=== PATIENT | female | born 1945 | race Caucasian/White ===

== ENCOUNTER 2019-03-12 15:59 | Emergency (ER) | payer OTHER, MEDICARE ==
[2019-03-12 16:36] LABS: ADD MAN DIFF? NO
[2019-03-12 16:38] LABS: ABNORMAL IP MESSAGE 1; BASOPHILS % 0.5 % (0.0-2.0); EOSINOPHILS % 0.2 % (0.0-7.0); HEMATOCRIT 37.6 % (37.0-47.0); HEMOGLOBIN 11.8 g/dl (12.0-16.0); LYMPHOCYTES # 0.7 10^3/ul (0.8-2.9); LYMPHOCYTES % 17.5 % (15.0-51.0); MEAN CORPUSCULAR HEMOGLOBIN 26.7 pg (29.0-33.0); MEAN CORPUSCULAR HGB CONC 31.4 g/dl (32.0-37.0); MEAN CORPUSCULAR VOLUME 85.1 fl (82.0-101.0); MONOCYTE # 0.4 10^3/ul (0.3-0.9); MONOCYTES % 10.2 % (0.0-11.0); NEUTROPHIL # 2.9 10^3/ul (1.6-7.5); NEUTROPHILS % 71.4 % (39.0-77.0); PLATELET COUNT 69 10^3/UL (140-415); RED BLOOD COUNT 4.42 10^6/ul (4.20-5.40); RED CELL DISTRIBUTION WIDTH 13.6 % (11.5-14.5)
[2019-03-12 16:39] LABS: MEAN PLATELET VOLUME 13.1 fl (7.4-10.4); POSITIVE DIFF @See below
[2019-03-12] MEDS: ACETAMINOPHEN 500 MG TAB PO (16:49)
[2019-03-12 16:55] LABS: ANION GAP 11 (5-13); BLOOD UREA NITROGEN 18 mg/dl (7-20); CALCIUM 9.3 mg/dl (8.4-10.2); CARBON DIOXIDE 26 mmol/L (21-31); CHLORIDE 103 mmol/L (97-110); CREATININE 0.76 mg/dl (0.44-1.00); POTASSIUM 4.4 mmol/L (3.5-5.1); SODIUM 140 mmol/L (135-144)
[2019-03-12 16:59] LABS: GLUCOSE 44 mg/dl (70-220)
[2019-03-12 17:01] LABS: ANISOCYTOSIS 1+ (0-0); BAND NEUTROPHILS #M 0.5 10^3/ul (0.0-0.6); BAND NEUTROPHILS % (M) 13 % (0-4); BASOPHILS % (M) 1 % (0-2); EOSINOPHILS % (M) 2 % (0-7); LYMPHOCYTES #M 0.6 10^3/ul (0.8-2.9); LYMPHOCYTES % (M) 17 % (15-51); MICROCYTOSIS 1+ (0-0); MONOCYTE #M 0.3 10^3/ul (0.3-0.9); MONOCYTES % (M) 9 % (0-11); PLATELET ESTIMATE DECREASED; POIKILOCYTOSIS 1+ (0-0); POLYCHROMASIA 3+ (0-0); SEG NEUT #M 2.3 10^3/ul (1.6-7.5); SEGMENTED NEUTROPHILS (M) % 58 % (39-77); SMUDGE%M 2 % (0-0)
[2019-03-12 17:06] LABS: TROPONIN-I 0.012 ng/ml (0.000-0.120)
[2019-03-12] MEDS: SOD CHLORIDE 0.9% 1,000 ML IV (17:29)
[2019-03-12] MEDS: DEXTROSE 50% 50 ML SYRINGE IV (17:29)
[2019-03-12 20:10] LABS: TROPONIN-I < 0.012 ng/ml (0.000-0.120)
== END 2019-03-12 20:38 | disposition home or self-care (01) ==
LOC: E/R 15:59
DX: J20.9 Acute bronchitis, unspecified (principal); E16.2 Hypoglycemia, unspecified; Z95.1 Presence of aortocoronary bypass graft
CPT/HCPCS: 36415; 71045; 80048; 82962; 84484; 85025; 93005; 96374; 99285-25